=== PATIENT | female | born 1995 | race Caucasian/White ===

== ENCOUNTER 2016-08-08 05:49 | Day surgery (SDC) | payer BC ==
[2016-08-08] VITALS (16 sets, daily range): BP systolic 109–129; BP diastolic 61–77; PULSE 68–97; RESP 15–44; TEMP 97.1–98.7; O2SAT 94–100; Ht 177.8 cm; Wt 81.5 kg
[~2016-08-08] VITALS: Ht 177.8 cm; Wt 81.5 kg
[~2016-08-08 05:49] MED LIST: MEDR150D9 INJ
[2016-08-08 06:23] LABS: BASOPHILS % (AUTO) 0.4 % (0-2); EOSINOPHILS # (AUTO) 0.1 T/MM3 (0-0.5); EOSINOPHILS % (AUTO) 0.8 % (0-4); HCT - HEMATOCRIT 41.4 % (36-46); HGB - HEMOGLOBIN 14.3 GM/DL (12-16); IMMATURE GRANULOCYTE # (AUTO) 0.01 T/MM3 (0.00-0.03); IMMATURE GRANULOCYTE % (AUTO) 0.1 % (0.0-0.5); LYMPHOCYTES # (AUTO) 3.1 T/MM3 (1-4.8); LYMPHOCYTES % (AUTO) 35.3 % (23-45); MEAN CORPUSCULAR HGB 31.1 UUG (26-34); MEAN CORPUSCULAR HGB CONC(MCHC 34.5 GM/DL (31-37); MEAN PLATELET VOLUME 10.4 UM3 (9.4-12.4); MONOCYTES # (AUTO) 0.7 T/MM3 (0-0.8); NEUTROPHILS #(AUTO)-ABSOLUTE 4.9 T/MM3 (1.8-7.7); NEUTROPHILS % (AUTO) 55.4 % (33-66); WBC - WHITE BLOOD COUNT 8.9 T/MM3 (4.5-11.0)
[2016-08-08 06:23] LABS: BLOOD, URINE TRACE-INTACT (NEGATIVE); COLOR,URINE YELLOW (YELLOW); LEUKOCYTE ESTERASE ,URINE NEGATIVE (NEGATIVE); NITRITE,URINE NEGATIVE (NEGATIVE); UROBILINOGEN,URINE 0.2 EU/DL (NORMAL)
--- NOTE | 2016-08-08 06:45 | ANESPREOP ---
Anesthesia Record Date and Time DATE: 08/08/16 TIME: 06:44 Proposed Surgical Procedure DX LAP NPO since: Midnight Allergies: Coded Allergies: No Known Drug Allergies (Verified Allergy, Unknown, 08/08/16) Ht/Wt/BMI Height: 5 ' 10.00 " Weight: 81.500 kg BMI: 25.8 kg/m2 Vital Signs Date Time Temp Pulse Resp B/P Pulse Ox O2 Delivery O2 Flow Rate FiO2 08/08/16 06:04 98.7 97 15 120/63 96 Room Air Medications Inpatient Medications Current Medications Medications (Trade) Dose Ordered Sig/Lisa Start Time Stop Time Status Last Admin Dose Admin Lactated Ringer's (Lactated Ringers) 1,000 ml @ 125 mls/hr Q8H 08/08/16 07:00 08/08/16 06:24 125 MLS/HR Medroxyprogesterone Acetate (Depo-Provera) 150 Mg/1 Ml Syringe, 1 DOSE INJ 3 MONTHS, (Reported) Last Taken: on 08/02/16 Currently on Beta Ara: No Medical/Surgical History Anesthesia PMH: Reports: Anesthesia Reactions (NO AIRWAY ISSUES), Denies: * Diabetes, Arthritis, Cancer, Clotting Problems, Glaucoma, Malignant Hyperthermia , Renal Disease, Sleep Apnea, Thyroid Disease Smoking Status: Never smoker Has pt. smoked today?: No Use Chewing Tobacco?: No Second Hand Exposure: No Substance Use Type: does not use Alcohol Intake: none HX of Last Menstrual Period: OCT 2015 Past Surgical History Orthopedic Surgeries: Abdominal Surgeries: Genitourinary Surgeries: Cardiac Surgeries: Endocrine Surgeries: Reproductive Surgeries: Yes - Neurological Surgeries: Ear Surgeries: Nose Surgeries: Throat Surgeries: Other Surgeries: Anesthesia Adverse Reactions: FOUND none Family Hx of Anesthesia Advers: none Hx of Motion Sickness: No Pertinent Findings Laboratory Tests 08/08/16 06:16 Test 08/08/16 06:16 Human Chorionic Gonadotropin, Qual Negative (NEGATIVE) EKG Rhythm: Sinus Rhythm Physical Exam Respiratory: Lungs clear Cardiovascular: FOUND Regular rate, rhythm Airway Assessment Mallampati Score: I TMD: 3 Fingerbreadths Neck Extension: Good ASA: 1 Plan Anesthesia Plan: GETA Discussion Discussed risks/options/alternatives of anesthesia and questions answered. Patient consents. Nursing pain assessment noted. Attestation Statement Prior to the delivery of any anesthetic medication, I examined the patient, developed the plan, obtained the patient's consent and discussed the risk and benefits of the procedure with the patient/guardian. CORINA MILLER August 08, 2016 06:45
[2016-08-08] MEDS ORDERED: LIDOCAINE 1% (10mg/ml) 2ml SDV INJ ONE (07:00)
[2016-08-08] MEDS ORDERED: LR 1,000 ML IV SCH (07:00)
[2016-08-08] MEDS ORDERED: BUPIVACAINE 0.25% (2.5mg/ml) INJ 30ml SDV ONE (07:03)
[2016-08-08] MEDS ORDERED: DEXAMETHASONE 4mg/ml - 1ml INJECTION ONE (07:05)
[2016-08-08] MEDS ORDERED: ONDANSETRON 4mg/2ml INJECTION ONE (07:05)
[2016-08-08] MEDS ORDERED: ROCURONIUM 50mg/5ml INJECTION IV ONE (07:05)
[2016-08-08] MEDS ORDERED: FENTANYL 250mcg/5ml INJECTION ONE (07:05)
[2016-08-08] MEDS ORDERED: PROPOFOL 200mg 20 ML IV ONE (07:05)
[2016-08-08] MEDS ORDERED: KETOROLAC 30mg/ml INJECTION ONE (08:13)
[2016-08-08] MEDS ORDERED: HYDROMORPHONE 2mg/ml INJECTION IV PRN (08:15)
[2016-08-08] MEDS ORDERED: ONDANSETRON 4mg/2ml INJECTION IV PRN (08:15)
[2016-08-08] MEDS ORDERED: METOCLOPRAMIDE 10mg/2ml INJECTION IV PRN (08:15)
[2016-08-08] MEDS ORDERED: FENTANYL 100mcg/2ml INJECTION IV PRN (08:15)
[2016-08-08] MEDS ORDERED: HYDROCODONE/APAP 5 mg/325 mg TABLET PO PRN (08:15)
[2016-08-08] MEDS ORDERED: MORPHINE SULFATE 4 MG SYRINGE IV PRN (08:15)
--- NOTE | 2016-08-08 08:15 | GYNOPNOTE1 ---
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
--- NOTE | 2016-08-08 08:30 | ANESPREOP ---
Anesthesia Record Date and Time DATE: 08/08/16 TIME: 08:28 Pre-Op Diagnosis dysmenorragia pelvic pain Proposed Surgical Procedure DX LAP NPO since: Midnight Allergies: Coded Allergies: No Known Drug Allergies (Verified Allergy, Unknown, 08/08/16) Ht/Wt/BMI Height: 5 ' 10.00 " Weight: 81.500 kg BMI: 25.8 kg/m2 Vital Signs Date Time Temp Pulse Resp B/P Pulse Ox O2 Delivery O2 Flow Rate FiO2 08/08/16 06:04 98.7 97 15 120/63 96 Room Air Medications Inpatient Medications Current Medications Medications (Trade) Dose Ordered Sig/Lisa Start Time Stop Time Status Last Admin Dose Admin Lactated Ringer's (Lactated Ringers) 1,000 ml @ 125 mls/hr Q8H 08/08/16 07:00 08/08/16 06:24 125 MLS/HR Morphine Sulfate (Morphine) 2-4 MG Q1H PRN 08/08/16 08:15 UNV Acetaminophen/ Hydrocodone Bitart (Carson 5/325) 1-2 TABS Q4H PRN 08/08/16 08:15 UNV Fentanyl (Fentanyl) 50 mcg Q30M PRN 08/08/16 08:15 UNV Metoclopramide HCl (REGLAN Inj) 10 mg Q6H PRN 08/08/16 08:15 UNV Ondansetron HCl (Zofran) 4 mg O PRN 08/08/16 08:15 UNV Hydromorphone HCl (Dilaudid) 1 mg Q3H PRN 08/08/16 08:15 UNV Medroxyprogesterone Acetate (Depo-Provera) 150 Mg/1 Ml Syringe, 1 DOSE INJ 3 MONTHS, (Reported) Last Taken: on 08/02/16 Currently on Beta Ara: No Medical/Surgical History Anesthesia PMH: Reports: Anesthesia Reactions (NO AIRWAY ISSUES), Obesity, Denies: *Diabetes, Arthritis, Cancer, Clotting Problems, Glaucoma, Malignant Hyperthermia, Renal Disease, Sleep Apnea, Thyroid Disease Smoking Status: Never smoker Has pt. smoked today?: No Use Chewing Tobacco?: No Second Hand Exposure: No Substance Use Type: does not use Alcohol Intake: none HX of Last Menstrual Period: OCT 2015 Past Surgical History Orthopedic Surgeries: Abdominal Surgeries: Genitourinary Surgeries: Cardiac Surgeries: Endocrine Surgeries: Reproductive Surgeries: Yes - Neurological Surgeries: Ear Surgeries: Nose Surgeries: Throat Surgeries: Other Surgeries: Anesthesia Adverse Reactions: FOUND none Family Hx of Anesthesia Advers: none Hx of Motion Sickness: No Pertinent Findings Laboratory Tests 08/08/16 06:16 Test 08/08/16 06:16 Human Chorionic Gonadotropin, Qual Negative (NEGATIVE) EKG Rhythm: Sinus Rhythm Physical Exam Respiratory: Bilat breath sounds equal, Lungs clear Cardiovascular: FOUND Regular rate, rhythm Airway Assessment Mallampati Score: I TMD: 3 Fingerbreadths Neck Extension: Good Overall Assessment: No Airway Concerns ASA: 1 Plan Anesthesia Plan: GETA Discussion Discussed risks/options/alternatives of anesthesia and questions answered. Patient consents. Nursing pain assessment noted. Present: Parent Attestation Statement Prior to the delivery of any anesthetic medication, I examined the patient, developed the plan, obtained the patient's consent and discussed the risk and benefits of the procedure with the patient/guardian. ADILSON YOUNG CRNA August 08, 2016 08:30
--- NOTE | 2016-08-08 09:30 | NUR ---
STATUS UPPER ABDOMEN BANDAIDE SATURATED AND NOTED TO BE BLEEDING SMALL AMOUNT UNDER DRESSING. DR. LESTER NOTIFIED VIA PHONE AND ORDER RECEIVED TO REINFORCE DRESSING WITH 4X4 GAUZE AND FOAM TAPE.
--- NOTE | 2016-08-08 09:35 | NUR ---
STATUS NEW BANDAIDE AND 3 FOLDED 4X4 GAUZE PLACED TO UPPER ABDOMEN INCISIONAL SITE. SITE SECURED WITH FOAM TAPE PER ORDER. PATIENT TOLERATED WELL.
--- NOTE | 2016-08-08 09:46 | ANESPO ---
Post-Op Note Date 08/08/16 Time: 09:45 Status Pt Participated in Evaluation: Pt participated in person Vital Signs Date Time Temp Pulse Resp B/P Pulse Ox O2 Delivery O2 Flow Rate FiO2 08/08/16 09:10 97.1 94 17 112/73 97 Room Air 08/08/16 08:35 2.00 Respiratory Function: Airway patent Cardiovascular Function: Regular pulse Mental Status: Alert/oriented Pain Level Intensity: 2 Unable to Assess Pain Due To: Medicated/Sleeping Hydration: Taking po fluids Complications during Recovery None apparent Follow-Up Instructions Instructions Per Surgeon PATRICK ZAYAS CRNA August 08, 2016 09:46
--- NOTE | 2016-08-09 09:59 | OPNOTEF ---
DATE OF PROCEDURE 08/08/2016 PREOPERATIVE DIAGNOSES 1. Secondary dysmenorrhea. 2. Deep dyspareunia. POSTOPERATIVE DIAGNOSES 1. Secondary dysmenorrhea, endometriosis of the posterior cul-de-sac. 2. Deep dyspareunia. PROCEDURE Diagnostic laparoscopy with fulguration of endometriosis. SURGEON Amanda Moreau MD ANESTHESIA General endotracheal - John Peñaloza CRNA EBL Minimal. OPERATIVE FINDINGS Scattered endometriotic implants of the posterior cul-de-sac. DESCRIPTION OF PROCEDURE Ms. Mock was brought to the OR and placed on the OR table in a comfortable supine position. She was given general anesthesia and intubated without difficulty. She was then placed in the standard lithotomy position and I performed a bimanual exam. The abdomen, perineum and vagina were prepped and draped in the usual sterile fashion. The cervix was visualized with a freeway speculum. It was grasped with an Allis clamp. The uterine cavity sounded to a depth of 7 cm. The Novan uterine manipulator was inserted and the balloon filled with air. We then re-gloved. The infraumbilical region was infiltrated with dilute Marcaine. A 5 mm incision was made. Tenting up the abdomen, the Veress needle was inserted through the incision. The abdomen was then insufflated with CO2 until pressures of 12-15 mmHg were achieved. The Veress needle was removed. Again tenting up the abdomen, the 5 mm trocar was placed through the incision. The port was left in place for placement of the 0-degree laparoscope. We placed this and explored the abdomen. The liver edge was smooth and free of lesions. Gallbladder was not seen. Appendix was seen easily and was also free of lesions. We then placed the patient in Trendelenburg and gently swept the bowel clear of the pelvis. I transilluminated the suprapubic region and then infiltrated with dilute Marcaine an area just to the right of midline. A 5 mm incision was made. Under direct visualization, a 5 mm trocar was placed through the incision. We then used a blunt probe to gently further sweep the bowel clear of the pelvis. Both of the ovaries were normal in appearance, as was the uterus and bilateral fallopian tubes. There were minimal adhesions from the bladder to the anterior lower uterine segment consistent with a prior . The posterior cul-de-sac had about five very small 1-2 mm implants of apparent endometriosis. These were away from the ureters. The ureters could be seen coursing bilaterally without difficulty. I then used monopolar cautery to carefully destroy each of the implants. We explored further. Ovarian fossa bilaterally were clear of lesions. There were no lesions on the anterior surface of the uterus or abdominal wall. We then removed our lower instrument and its port. We took the patient out of Trendelenburg and we observed carefully for hemostasis. We allowed the CO2 to escape completely, then removed our camera and its port. The incisions were then reapproximated with subcuticular style 3-0 undyed Vicryl. The wounds were dressed with sterile dressings. Counts were correct postoperatively x 2. I then removed the uterine manipulator. The cervix was carefully observed for hemostasis. It was under good control. We returned Ms. Mock to the supine position. She was then brought out from under anesthesia, extubated, and transferred to recovery in stable condition. MIRIAM
== END 2016-08-08 10:10 | disposition home or self-care (01) ==
LOC: SCU 05:49
PROVIDERS: ATTEND Obstetrics & Gynecology
DX: N80.3 Endometriosis of pelvic peritoneum (principal); N94.5 Secondary dysmenorrhea; N94.12 Deep dyspareunia
CPT/HCPCS: 36415; 58662; 81003; 84703; 85025; J1100; J1885; J2405; J2704; J3010; J7120; S0020